=== PATIENT | male | born 1990 | race Caucasian/White ===

== ENCOUNTER 2018-05-17 14:48 | Emergency (ER) | payer OTHER ==
[~2018-05-17] VITALS: Ht 172.7 cm; Wt 93.9 kg
[2018-05-17 14:54] VITALS: Ht 172.7 cm; Wt 93.9 kg
[2018-05-17 16:22] VITALS: BP 111/66
== END 2018-05-17 16:27 | disposition home or self-care (01) ==
LOC: ED 14:48
DX: S39.012A Strain of muscle, fascia and tendon of lower back, initial encounter (principal); X58.XXXA Exposure to other specified factors, initial encounter; Y93.89 Activity, other specified; Y92.89 Other specified places as the place of occurrence of the external cause; Y99.8 Other external cause status
CPT/HCPCS: J1885; Q0092